=== PATIENT | male | born 1995 | race African-American/Black ===

== ENCOUNTER 2018-09-15 23:30 | Inpatient (IN) ==
[2018-09-15] MEDS ORDERED: DIPHTHERIA/TETANUS ADULT VACCINE 0.5 ML SYRINGE IM ONE (23:44)
[2018-09-15] MEDS ORDERED: LACTATED RINGERS 1,000 ML IV STA (23:44)
[2018-09-16 00:01] LABS: Basophils # 0.1 10*3/uL (0.0-0.2); Basophils % 0.5 % (0.0-0.8); Eosinophils # 0.2 10*3/uL (0.0-0.87); Eosinophils % 1.6 % (0.00-10.9); Hematocrit 40.7 VOL% (42.0-52.0); Immature Granulocytes % 0.4 %; Immature Granulocytes Absolute 0.04 #; Lymphocytes # 3.4 10*3/uL (1.4-4.0); Lymphocytes % 32.9 % (21.2-54.2); Mean Corpuscular HGB Conc 31.9 GM/DL (32-36); Mean Corpuscular Volume 82.4 FL (87-102); Mean Platelet Volume 9.6 FL (9.6-12.0); Monocytes % 12.2 % (1.7-12.7); Neutrophils % 52.4 % (38.7-73.9); Platelet Count 315 T/CUMM (130-400); Red Blood Count 4.94 MC/CUMM (3.8-5.5); Red Cell Distribution Width 14.1 % (9.3-17.3); White Blood Count 10.3 T/CUMM (4-12)
[2018-09-16 00:12] LABS: Alanine Aminotransferase 21 U/L (16-61); Albumin 3.2 G/DL (3.4-5.0); Alkaline Phosphatase 96 U/L (45-117); Amylase 99 U/L (25-115); Aspartate Amino Transferase 14 U/L (0-37); Bilirubin,Total < 0.39 MG/DL (0.2-1.0); Blood Urea Nitrogen 11 MG/DL (7-18); Calcium 9.1 MG/DL (8.5-10.1); Glucose 88 MG/DL (74-106); Osmolality,Calculated 278.3 MOS/KG (273-304); Total Protein 8.7 G/DL (6.4-8.3)
[2018-09-16 00:18] LABS: PT Patient Result 11.2 SECS; Partial Thromboplastin Time 24.9 SECS (0-40)
[2018-09-16] MEDS ORDERED: POTASSIUM CHLORIDE INJ 40 MEQ in DEXTROSE 5% 1,000 ML IV SCH (00:30)
[2018-09-16] MEDS ORDERED: MORPHINE 4 MG/1 ML VIAL ONE (00:32)
[2018-09-16] MEDS ORDERED: MORPHINE 4 MG/1 ML VIAL IV STA (00:34)
[2018-09-16 00:51] LABS: Apearance,Urine CLEAR (Clear); Bacteria,Urine Occasional /HPF (Few); Bilirubin,Urine Negative (Negative); Blood, Urine Moderate mg/dL (Negative); Glucose,Urine (UA) Negative (Negative); Hyaline Casts,Urine 3 /LPF (0-3); Ketones,Urine 5 mg/dL (Negative); Mucus,Urine Many /LPF (Occasional); Nitrite,Urine Negative (Negative); Protein,Urine 100 MG/DL; RBC,Urine 13 /HPF (0-4); Urine Color Yellow (Yellow); Urine Specific Gravity 1.024 (1.001-1.035); Urine Urobilinogen < 2.0 EU/DL (0.2-1.0); WBC,Urine 3 /HPF (0-6)
[2018-09-16] MEDS ORDERED: BUPIVACAINE MPF 0.25% /EPI 30 ML VIAL ONE (00:57)
[2018-09-16] MEDS ORDERED: LIDOCAINE 1% 20 ML VIAL ONE (00:57)
[2018-09-16] MEDS ORDERED: SODIUM CHLORIDE 0.9% 1,000 ML IV PRN (01:08)
[2018-09-16] MEDS ORDERED: HYDROmorphone 2 MG/1 ML VIAL ONE (01:48)
[2018-09-16 01:51] LABS: Barbiturates Screen,Urine Negative (Negative); Benzodiazepines Screen,Urine Negative (Negative); Cannabinoid Screen,Urine Positive (Negative); Opiate Screen,Urine Negative (Negative); Phencyclidine Screen,Urine Negative (Negative)
[2018-09-16] MEDS ORDERED: BISACODYL 5 MG TABLET PO PRN (02:18)
[2018-09-16] MEDS ORDERED: ACETAMINOPHEN 325 MG TABLET PO PRN (02:18)
[2018-09-16] MEDS ORDERED: LABETALOL 100 MG/20 ML VIAL IV ONE (02:28)
[2018-09-16] MEDS ORDERED: HYDROmorphone PCA 30 MG/30 ML SYRINGE IV SCH (02:30)
[2018-09-16] MEDS ORDERED: MEPERIDINE 25 MG/1 ML VIAL IV PRN (02:44)
[2018-09-16] MEDS: HYDROmorphone 2 MG/1 ML VIAL IV PRN ×9 (02:45→23:01)
[2018-09-16] MEDS ORDERED: PROPOFOL 200 MG/20 ML VIAL IV ONE (03:00)
[2018-09-16] MEDS ORDERED: MIDAZOLAM 2 MG/2 ML VIAL ONE (03:01)
[2018-09-16] MEDS ORDERED: SEVOFLURANE 1 UNIT/15 MINUTE INH ONE (03:01)
[2018-09-16] MEDS ORDERED: fentaNYL 100 MCG/2 ML VIAL ONE (03:01)
[2018-09-16] MEDS ORDERED: NEOSTIGMINE 10 MG/10 ML VIAL ONE (03:02)
[2018-09-16] MEDS ORDERED: GLYCOPYRROLATE 0.4 MG/2 ML VIAL ONE (03:02)
[2018-09-16] MEDS ORDERED: LACTATED RINGERS 2,000 ML IV ONE (03:02)
[2018-09-16] MEDS ORDERED: ROCURONIUM 100 MG/10 ML VIAL IV ONE (03:02)
[2018-09-16] MEDS ORDERED: SUCCINYLCHOLINE 200 MG/10 ML VIAL ONE (03:02)
[2018-09-16] MEDS ORDERED: ONDANSETRON 4 MG/2 ML VIAL ONE (03:02)
[2018-09-16] MEDS ORDERED: hydrALAZINE 20 MG/1 ML VIAL IV ONE (03:08)
[2018-09-16 03:23] LABS: Basophils # 0.1 10*3/uL (0.0-0.2); Basophils % 0.2 % (0.0-0.8); Bilirubin,Total 0.4 MG/DL (0.2-1.0); Calcium 8.4 MG/DL (8.5-10.1); Eosinophils % 0.1 % (0.00-10.9); Hematocrit 42.1 VOL% (42.0-52.0); Hemoglobin 12.8 GM/DL (14.0-18.0); Immature Granulocytes % 0.7 %; Immature Granulocytes Absolute 0.14 #; Lymphocytes # 1.4 10*3/uL (1.4-4.0); Lymphocytes % 6.4 % (21.2-54.2); Mean Corpuscular HGB Conc 30.4 GM/DL (32-36); Mean Corpuscular Volume 85.2 FL (87-102); Mean Platelet Volume 9.6 FL (9.6-12.0); Monocytes % 7.5 % (1.7-12.7); Neutrophils % 85.1 % (38.7-73.9); Osmolality,Calculated 272.8 MOS/KG (273-304); Platelet Count 225 T/CUMM (130-400); Red Blood Count 4.94 MC/CUMM (3.8-5.5); Red Cell Distribution Width 14.3 % (9.3-17.3); Total Protein 7.8 G/DL (6.4-8.3); White Blood Count 21.3 T/CUMM (4-12)
[2018-09-16] MEDS: LACTATED RINGERS 1,000 ML IV SCH ×3 (04:45→20:37)
[2018-09-16 04:57] LABS: Eosinophils 2 % (0-10); Lymphocytes 7 % (20-55); Segmented Neutrophils 85 % (50-85); Total Cells Counted 100
[2018-09-16 04:58] LABS: Platelet Estimate Adequate
[2018-09-16] MEDS: ONDANSETRON 4 MG/2 ML VIAL IV PRN ×3 (08:24→20:35)
[2018-09-16] MEDS: PANTOPRAZOLE 40 MG VIAL IV SCH (08:26)
[2018-09-16] MEDS ORDERED: diphenhydrAMINE CAP 50 MG CAPSULE PO PRN (18:59)
[2018-09-16] MEDS ORDERED: LACTATED RINGERS 1,000 ML IV SCH (20:30)
[2018-09-17] MEDS: HYDROmorphone 2 MG/1 ML VIAL IV PRN ×4 (02:51→21:28)
[2018-09-17] MEDS: ONDANSETRON 4 MG/2 ML VIAL IV PRN ×2 (02:52→20:03)
[2018-09-17 04:56] LABS: Basophils % 0.2 % (0.0-0.8); Hematocrit 38.9 VOL% (42.0-52.0); Hemoglobin 12.7 GM/DL (14.0-18.0); Immature Granulocytes % 0.3 %; Immature Granulocytes Absolute 0.04 #; Lymphocytes % 8.4 % (21.2-54.2); Mean Corpuscular HGB Conc 32.6 GM/DL (32-36); Mean Corpuscular Volume 81.4 FL (87-102); Mean Platelet Volume 9.6 FL (9.6-12.0); Neutrophils % 75.1 % (38.7-73.9); Platelet Count 293 T/CUMM (130-400); Red Blood Count 4.78 MC/CUMM (3.8-5.5); Red Cell Distribution Width 14.2 % (9.3-17.3); White Blood Count 12.4 T/CUMM (4-12)
[2018-09-17 05:20] LABS: Calcium 8.7 MG/DL (8.5-10.1)
[2018-09-17 05:26] LABS: Eosinophils 1 % (0-10); Hypochromasia 1+; Lymphocytes 9 % (20-55); Platelet Estimate Adequate; Segmented Neutrophils 79 % (50-85); Total Cells Counted 100
[2018-09-17 05:27] LABS: Ovalocytes Slight
[2018-09-17] MEDS: LACTATED RINGERS 1,000 ML IV SCH ×4 (06:07→20:07)
[2018-09-17] MEDS: PANTOPRAZOLE 40 MG VIAL IV SCH (09:25)
[2018-09-17] MEDS: ENOXAPARIN 30 MG/0.3 ML SYRINGE SUBCUT SCH (15:50)
[2018-09-17] MEDS: hydrALAZINE 20 MG/1 ML VIAL IV PRN (16:48)
[2018-09-17] MEDS: CARVEDILOL 6.25 MG TABLET PO SCH (20:05)
[2018-09-17] MEDS ORDERED: LACTATED RINGERS 1,000 ML IV SCH (21:30)
[2018-09-17 21:40] LABS: Basophils % 0.2 % (0.0-0.8); Hematocrit 38.9 VOL% (42.0-52.0); Hemoglobin 12.5 GM/DL (14.0-18.0); Immature Granulocytes % 0.3 %; Immature Granulocytes Absolute 0.04 #; Lymphocytes # 1.1 10*3/uL (1.4-4.0); Lymphocytes % 9.7 % (21.2-54.2); Mean Corpuscular HGB Conc 32.1 GM/DL (32-36); Mean Corpuscular Volume 80.5 FL (87-102); Mean Platelet Volume 9.3 FL (9.6-12.0); Monocytes % 15.3 % (1.7-12.7); Neutrophils % 74.5 % (38.7-73.9); Platelet Count 293 T/CUMM (130-400); Red Blood Count 4.83 MC/CUMM (3.8-5.5); Red Cell Distribution Width 13.9 % (9.3-17.3); White Blood Count 11.7 T/CUMM (4-12)
[2018-09-17 21:53] LABS: Calcium 8.5 MG/DL (8.5-10.1); Osmolality,Calculated 266.2 MOS/KG (273-304)
[2018-09-18] MEDS: HYDROmorphone 2 MG/1 ML VIAL IV PRN ×4 (05:35→21:56)
[2018-09-18] MEDS: CARVEDILOL 6.25 MG TABLET PO SCH ×2 (11:26→21:55)
[2018-09-18] MEDS: PANTOPRAZOLE 40 MG VIAL IV SCH (11:28)
[2018-09-18] MEDS: ENOXAPARIN 30 MG/0.3 ML SYRINGE SUBCUT SCH (11:30)
[2018-09-18] MEDS: BISACODYL 5 MG TABLET PO SCH (11:33)
[2018-09-19 05:40] LABS: Basophils % 0.4 % (0.0-0.8); Eosinophils # 0.1 10*3/uL (0.0-0.87); Eosinophils % 1.2 % (0.00-10.9); Hematocrit 33.2 VOL% (42.0-52.0); Hemoglobin 10.6 GM/DL (14.0-18.0); Immature Granulocytes % 0.3 %; Immature Granulocytes Absolute 0.02 #; Lymphocytes # 1.7 10*3/uL (1.4-4.0); Lymphocytes % 23.7 % (21.2-54.2); Mean Corpuscular HGB Conc 31.9 GM/DL (32-36); Mean Platelet Volume 9.6 FL (9.6-12.0); Monocytes % 19.1 % (1.7-12.7); Neutrophils % 55.3 % (38.7-73.9); Platelet Count 335 T/CUMM (130-400); Red Cell Distribution Width 13.9 % (9.3-17.3); White Blood Count 7.3 T/CUMM (4-12)
[2018-09-19 05:59] LABS: Eosinophils 4 % (0-10); Lymphocytes 20 % (20-55); Platelet Estimate Adequate; Segmented Neutrophils 62 % (50-85); Total Cells Counted 100
[2018-09-19 06:00] LABS: Hypochromasia 1+
[2018-09-19] MEDS: HYDROmorphone 2 MG/1 ML VIAL IV PRN ×2 (06:34→20:27)
[2018-09-19] MEDS: CARVEDILOL 6.25 MG TABLET PO SCH ×2 (09:29→20:27)
[2018-09-19] MEDS: BISACODYL 5 MG TABLET PO SCH (09:29)
[2018-09-19] MEDS: PANTOPRAZOLE 40 MG VIAL IV SCH (09:29)
[2018-09-19] MEDS: ENOXAPARIN 30 MG/0.3 ML SYRINGE SUBCUT SCH (09:30)
[2018-09-19] MEDS: ONDANSETRON 4 MG/2 ML VIAL IV PRN (13:16)
[2018-09-20] MEDS: hydrALAZINE 20 MG/1 ML VIAL IV PRN (00:49)
[2018-09-20] MEDS ORDERED: HAEMOPHILUS B CONJ VACCINE 0.5 ML/10 MCG VIAL IM ONE (06:00)
[2018-09-20] MEDS ORDERED: MENINGOCOCCAL VACCINE 0.5 ML VIAL IM ONE (06:00)
[2018-09-20] MEDS ORDERED: PNEUMOCOCCAL VACCINE (13 VALENT) 0.5 ML SYRINGE IM ONE (06:00)
[2018-09-20] MEDS: PANTOPRAZOLE 40 MG VIAL IV SCH (09:00)
[2018-09-20] MEDS: ENOXAPARIN 30 MG/0.3 ML SYRINGE SUBCUT SCH (09:06)
[2018-09-20] MEDS: BISACODYL 5 MG TABLET PO SCH (09:06)
[2018-09-20] MEDS: CARVEDILOL 6.25 MG TABLET PO SCH (09:07)
[2018-09-20 11:46] VITALS: BP 139/79
== END 2018-09-20 13:01 | disposition home or self-care (01) | DRG 958 ==
LOC: N.ED 23:30 → N.CC 09-16 00:36 → N.EDINP 09-16 02:18 → N.CC 09-16 02:46 → N.3E 09-16 17:51
PROVIDERS: ADMIT Student in an Organized Health Care Education/Training Program; ATTEND Student in an Organized Health Care Education/Training Program